=== PATIENT | female | born 1950 | race Caucasian/White ===

== ENCOUNTER 2016-12-01 13:20 | Emergency (ER) | payer MEDICARE, OTHER ==
[2016-12-01] MEDS ORDERED: HYDROmorphone 1 MG/ML 1 ML SYRINGE IM STA (14:11)
[2016-12-01] MEDS ORDERED: methylPREDNISolone SOD SUCCI 125 MG/2 ML VIAL IM STA (14:11)
--- NOTE | 2016-12-01 14:17 | ED ---
Back Pain HPI - General Chief Complaint: Back Pain/Injury Stated Complaint: Leg Pain Time Seen by Provider: 12/01/16 13:52 Source: patient, RN notes reviewed Limitations: no limitations - History of Present Illness Initial Comments: 66-year-old female presents to the emergency Department chief complaint of left leg and groin pain. Patient states she's been having this pain for the past month or so. Patient states that she's been to her back specialist stated injection however injection was about 5 days ago when she is not feeling any relief. Patient states that she called her doctor this week but they are on vacation so she is unable to see him. Patient states she's been using her 's tramadol with no improvement to her symptoms or she is here to get something to help her with her pain until she can see her doctor on Saturday. Patient states much like her normal pain. Patient denies any loss of bowel or bladder functions. They deny any other symptoms at this time. Patient denies any recent fever, chills, shortness of breath, chest pain, abdominal pain, nausea vomiting, numbness or tingling, dysuria or hematuria, constipation or diarrhea, headaches or visual changes, or any other current symptoms. - Related Data Home Medications Medication Instructions Recorded Confirmed Atorvastatin Calcium [Lipitor] 10 mg PO HS 12/10/14 12/14/14 Previous Rx's Medication Instructions Recorded Hydrocodone/Acetaminophen [[place] 1 each PO Q6HR PRN #20 tab 12/01/16 5-325] predniSONE 50 mg PO DAILY #5 tab 12/01/16 Allergies Allergy/AdvReac Type Severity Reaction Status Date / Time Sulfa (Sulfonamide Allergy hives Verified 12/01/16 13:51 Antibiotics) ibandronate sodium AdvReac dizziness, Verified 12/01/16 13:51 [From Bon[place]] confusion, muscle weakness Review of Systems ROS Statement: Those systems with pertinent positive or pertinent negative responses have been documented in the HPI. ROS Other: All systems not noted in ROS Statement are negative. Past Medical History Past Medical History: Hyperlipidemia Additional Past Medical History / Comment(s): + HEMOCCULT W/ ROUTINE PHYSICAL 11/24/14 History of Any Multi-Drug Resistant Organisms: None Reported Past Surgical History: Hysterectomy, Joint Replacement, Orthopedic Surgery Additional Past Surgical History / Comment(s): RT KNEE SCOPE. LT YESICA Past Anesthesia/Blood Transfusion Reactions: No Reported Reaction Past Psychological History: No Psychological Hx Reported Smoking Status: Never smoker Past Alcohol Use History: Occasional Past Drug Use History: None Reported General Exam Limitations: no limitations General appearance: alert, in no apparent distress Neck exam: Present: normal inspection. Absent: tenderness, meningismus, lymphadenopathy Respiratory exam: Present: normal lung sounds bilaterally. Absent: respiratory distress, wheezes, rales, rhonchi, stridor Cardiovascular Exam: Present: regular rate, normal rhythm, normal heart sounds. Absent: systolic murmur, diastolic murmur, rubs, gallop, clicks Extremities exam: Present: normal inspection, full ROM, normal capillary refill. Absent: tenderness, pedal edema, joint swelling, calf tenderness Back exam: Present: normal inspection, full ROM. Absent: tenderness, paraspinal tenderness, vertebral tenderness Neurological exam: Present: alert, oriented X3, CN II-XII intact. Absent: motor sensory deficit Psychiatric exam: Present: normal affect, normal mood Skin exam: Present: warm, dry, intact, normal color. Absent: rash Course Vital Signs 12/01/16 13:47 Temperature 99.4 F Pulse Rate 85 Respiratory 18 Rate Blood Pressure 138/68 O2 Sat by Pulse 97 Oximetry Medical Decision Making - Medical Decision Making 66-year-old female presents to the emergency department with a chief complaint of her chronic back pain flaring up. This time we did give the patient injections here. We gave her prescription for pain medication other steroid Dosepak for home. We discussed follow-up with her back specialist we discussed return parameters. We discussed all patient's questions. She stated that she understood and is tender and plan. This time she was discharged home. Disposition Clinical Impression: Degenerative disc disease Disposition: HOME SELF-CARE Condition: Stable Instructions: Degenerative Disc Disease (ED) Additional Instructions: Please use medication as discussed. Please follow up with family doctor if symptoms have not improved over the next two days. Please return to the emergency room if your symptoms increase or worsen or for any other concerns. Prescriptions: Hydrocodone/Acetaminophen [[place] 5-325] 1 each PO Q6HR PRN #20 tab PRN Reason: Pain predniSONE 50 mg PO DAILY #5 tab Referrals: Nicolasa Tovar MD [Primary Care Provider] - 1-2 days Time of Disposition: 14:17
[2016-12-01 14:44] VITALS: BP 136/70; PULSE 80; RESP 20; TEMP 98.2
== END 2016-12-01 14:43 | disposition home or self-care (01) ==
LOC: EC 13:20
DX: M51.9 Unspecified thoracic, thoracolumbar and lumbosacral intervertebral disc disorder (principal); E78.5 Hyperlipidemia, unspecified; Z79.899 Other long term (current) drug therapy; Z88.2 Allergy status to sulfonamides; Z88.8 Allergy status to other drugs, medicaments and biological substances
CPT/HCPCS: 99283; 96372 ×2; J2930; J1170

== ENCOUNTER 2016-12-25 17:12 | Emergency (ER) | payer MEDICARE, OTHER ==
[~2016-12-25 17:12] MED LIST: MAGNESIUM CITRATE 296 ML BOTTLE ONE
[2016-12-25] MEDS ORDERED: SODIUM CHLORIDE 0.9% 1,000 ML IV STA ×2 (17:48)
[2016-12-25] MEDS ORDERED: MAGNESIUM CITRATE 296 ML BOTTLE PO ONE (17:50)
[2016-12-25] MEDS ORDERED: DOCUSATE 100 MG CAP PO STA (17:51)
--- NOTE | 2016-12-25 18:05 | ED ---
General Adult HPI - General Chief complaint: Abdominal Pain Stated complaint: Abd Pain Time Seen by Provider: 12/25/16 17:36 Source: patient, RN notes reviewed Mode of arrival: wheelchair Limitations: no limitations - History of Present Illness Initial comments: Patient 66-year-old female who presents emergency room today with chief complaint of abdominal pain over the last few days. Does admit that she went to the family doctor who did an x-ray of the abdomen and was told that she is constipated. She states she's been taking laxative last today she's had bowel movements but have not been very large. She states it has had relief after bowel movements of similar pain. She describes abdominal pain as crampy in nature. She states it comes and goes. States currently comfortable this time. States that she has had decreased flatulence. States she's been on medications of tramadol and also [place] due to back pain recently. Patient also admits that her doctor gave her antibiotic of Augmentin to cover for possible diverticulitis. Denies any history of diverticulitis. Patient denies any other complaints or symptoms at this time. - Related Data Home Medications Medication Instructions Recorded Confirmed Atorvastatin Calcium [Lipitor] 10 mg PO HS 12/10/14 12/25/16 Acetaminophen Tab [Tylenol Tab] 1,000 mg PO Q6HR PRN 12/25/16 12/25/16 Amoxic-Pot Clav 875-125Mg 1 tab PO Q12HR 12/25/16 12/25/16 [Augmentin 875-125] Naproxen Sodium [Aleve] 220 mg PO BID PRN 12/25/16 12/25/16 Zolpidem [Ambien] 10 mg PO HS PRN 12/25/16 12/25/16 Allergies Allergy/AdvReac Type Severity Reaction Status Date / Time Sulfa (Sulfonamide Allergy hives Verified 12/25/16 18:18 Antibiotics) ibandronate sodium AdvReac dizziness, Verified 12/25/16 18:18 [From [place]] confusion, muscle weakness Review of Systems ROS Statement: Those systems with pertinent positive or pertinent negative responses have been documented in the HPI. ROS Other: All systems not noted in ROS Statement are negative. Past Medical History Past Medical History: Hyperlipidemia Additional Past Medical History / Comment(s): + HEMOCCULT W/ ROUTINE PHYSICAL 11/24/14 History of Any Multi-Drug Resistant Organisms: None Reported Past Surgical History: Hysterectomy, Joint Replacement, Orthopedic Surgery Additional Past Surgical History / Comment(s): RT KNEE SCOPE. LT YESICA Past Anesthesia/Blood Transfusion Reactions: No Reported Reaction Past Psychological History: No Psychological Hx Reported Smoking Status: Never smoker Past Alcohol Use History: Occasional Past Drug Use History: None Reported General Exam - General Exam Comments Initial Comments: General: The patient is awake and alert, in no distress, and does not appear acutely ill. Eye: Pupils are equal, round and reactive to light, extra-ocular movements are intact. No nystagmus. There is normal conjunctiva bilaterally. No signs of icterus. Ears, nose, mouth and throat: There are moist mucous membranes and no oral lesions. Neck: The neck is supple, there is no tenderness or JVD. Cardiovascular: There is a regular rate and rhythm. No murmur, rub or gallop is appreciated. Respiratory: Lungs are clear to auscultation, respirations are non-labored, breath sounds are equal. No wheezes, stridor, rales, or rhonchi. Gastrointestinal: Soft, non-distended, non-tender abdomen without masses or organomegaly noted. There is no rebound or guarding present. No CVA tenderness. Bowel sounds are unremarkable. Musculoskeletal: Normal ROM, no tenderness. Strength 5/5. Sensation intact. Pulses equal bilaterally 2+. Neurological: A&O x 3. CN II-XII intact, There are no obvious motor or sensory deficits. Coordination appears grossly intact. Speech is normal. Skin: Skin is warm and dry and no rashes or lesions are noted. Psychiatric: Cooperative, appropriate mood & affect, normal judgment. Limitations: no limitations Course Vital Signs 12/25/16 17:32 Temperature 99.1 F Pulse Rate 84 Respiratory 20 Rate Blood Pressure 135/71 O2 Sat by Pulse 97 Oximetry Medical Decision Making - Medical Decision Making Patient reexamined at this time shows no signs of distress resting comfortably in the stretcher. Patient's labs been reviewed. No elevated white count. No fever here in the emergency room. CT of the abdomen and pelvis does show evidence of diverticulitis. Patient started Augmentin yesterday. Case was discussed in detail with Dr. Platt. I discussed with patient about admission versus continuing outpatient antibiotics at this time. States she does not want to be admitted. Will be given dose of Unasyn here in emergency room. Will be continued on Augmentin at home. Advised follow-up the family doctor tomorrow. Advised return if there is any fever or increase worsen symptoms. - Lab Data Result diagrams: 12/25/16 17:55 12/25/16 17:55 Lab Results 12/25/16 12/25/16 12/25/16 Range/Units 17:55 17:55 17:55 WBC 9.1 (3.8-10.6) k/uL RBC 4.36 (3.80-5.40) m/uL Hgb 13.3 (11.4-16.0) gm/dL Hct 40.1 (34.0-46.0) % MCV 92.1 (80.0-100.0) fL MCH 30.5 (25.0-35.0) pg MCHC 33.1 (31.0-37.0) g/dL RDW 13.0 (11.5-15.5) % Plt Count 291 (150-450) k/uL Neutrophils % 80 % Lymphocytes % 11 % Monocytes % 4 % Eosinophils % 3 % Basophils % 0 % Neutrophils # 7.2 (1.3-7.7) k/uL Lymphocytes # 1.0 (1.0-4.8) k/uL Monocytes # 0.4 (0-1.0) k/uL Eosinophils # 0.3 (0-0.7) k/uL Basophils # 0.0 (0-0.2) k/uL PT 10.6 (9.0-12.0) sec INR 1.0 (<1.1) APTT 25.1 (22.0-30.0) sec Sodium 143 (137-145) mmol/L Potassium 4.4 (3.5-5.1) mmol/L Chloride 105 (98-107) mmol/L Carbon Dioxide 27 (22-30) mmol/L Anion Gap 11 mmol/L BUN 16 (7-17) mg/dL Creatinine 0.83 (0.52-1.04) mg/dL Est GFR (MDRD) Af Amer >60 (>60 ml/min/1.73 sqM) Est GFR (MDRD) Non-Af >60 (>60 ml/min/1.73 sqM) Glucose 100 H (74-99) mg/dL Calcium 10.0 (8.4-10.2) mg/dL Total Bilirubin 0.8 (0.2-1.3) mg/dL AST 15 (14-36) U/L ALT 27 (9-52) U/L Alkaline Phosphatase 61 (38-126) U/L Total Protein 7.5 (6.3-8.2) g/dL Albumin 4.3 (3.5-5.0) g/dL Lipase 51 (23-300) U/L Urine Color Urine Appearance (Clear) Urine pH (5.0-8.0) Ur Specific [place] (1.001-1.035) Urine Protein (Negative) Urine Glucose (UA) (Negative) Urine Ketones (Negative) Urine Blood (Negative) Urine Nitrite (Negative) Urine Bilirubin (Negative) Urine Urobilinogen (<2.0) mg/dL Ur Leukocyte Esterase (Negative) 12/25/16 Range/Units 18:54 WBC (3.8-10.6) k/uL RBC (3.80-5.40) m/uL Hgb (11.4-16.0) gm/dL Hct (34.0-46.0) % MCV (80.0-100.0) fL MCH (25.0-35.0) pg MCHC (31.0-37.0) g/dL RDW (11.5-15.5) % Plt Count (150-450) k/uL Neutrophils % % Lymphocytes % % Monocytes % % Eosinophils % % Basophils % % Neutrophils # (1.3-7.7) k/uL Lymphocytes # (1.0-4.8) k/uL Monocytes # (0-1.0) k/uL Eosinophils # (0-0.7) k/uL Basophils # (0-0.2) k/uL PT (9.0-12.0) sec INR (<1.1) APTT (22.0-30.0) sec Sodium (137-145) mmol/L Potassium (3.5-5.1) mmol/L Chloride (98-107) mmol/L Carbon Dioxide (22-30) mmol/L Anion Gap mmol/L BUN (7-17) mg/dL Creatinine (0.52-1.04) mg/dL Est GFR (MDRD) Af Amer (>60 ml/min/1.73 sqM) Est GFR (MDRD) Non-Af (>60 ml/min/1.73 sqM) Glucose (74-99) mg/dL Calcium (8.4-10.2) mg/dL Total Bilirubin (0.2-1.3) mg/dL AST (14-36) U/L ALT (9-52) U/L Alkaline Phosphatase (38-126) U/L Total Protein (6.3-8.2) g/dL Albumin (3.5-5.0) g/dL Lipase (23-300) U/L Urine Color Yellow Urine Appearance Clear (Clear) Urine pH 5.0 (5.0-8.0) Ur Specific [place] 1.010 (1.001-1.035) Urine Protein Negative (Negative) Urine Glucose (UA) Negative (Negative) Urine Ketones 1+ H (Negative) Urine Blood Negative (Negative) Urine Nitrite Negative (Negative) Urine Bilirubin Negative (Negative) Urine Urobilinogen <2.0 (<2.0) mg/dL Ur Leukocyte Esterase Negative (Negative) Disposition Clinical Impression: Diverticulitis Disposition: HOME SELF-CARE Condition: Good Instructions: Diverticulitis (ED) Additional Instructions: Please continue previously prescribed antibiotics. Please follow-up the family doctor tomorrow. Please return to emergency room if there is any fever or increase or worsening of symptoms or any other concerns. Time of Disposition: 20:37
[2016-12-25 18:12] LABS: Basophils % (A) 0 %; CHCM 32.7; Eosinophils # (A) 0.3 k/uL (0-0.7); Eosinophils % (A) 3 %; HCT 40.1 % (34.0-46.0); HDW 2.25; HGB 13.3 gm/dL (11.4-16.0); Luc # (Auto) 0.17; Luc % (Auto) 2; Lymphocytes % (A) 11 %; MCH 30.5 pg (25.0-35.0); MCHC 33.1 g/dL (31.0-37.0); MCV 92.1 fL (80.0-100.0); Mean Platelet Volume 6.9; Monocytes # (A) 0.4 k/uL (0-1.0); Monocytes % (A) 4 %; Neutrophils # (A) 7.2 k/uL (1.3-7.7); Neutrophils % (A) 80 %; RBC 4.36 m/uL (3.80-5.40); WBC 9.1 k/uL (3.8-10.6); WBC (Perox) 9.32
--- NOTE | 2016-12-25 18:17 | XR ---
EXAMINATION TYPE: XR KUB DATE OF EXAM: 12/25/2016 6:13 PM CLINICAL HISTORY: Lower abdominal pain for 2 days with constipation. TECHNIQUE: 2 upright KUB images of the abdomen are obtained. COMPARISON: None. FINDINGS: Scattered gas is seen in non-distended small bowel loops. Gas and fecal material is seen in non-distended colon. There is no visceromegaly, pneumoperitoneum, or abnormal calcification appr eciated. The lung bases are clear. Metallic hardware left hip level is partially imaged. IMPRESSION: Overall nonobstructive bowel gas pattern.
[2016-12-25 18:18] LABS: Partial Thromboplastin Time 25.1 sec (22.0-30.0); Prothrombin Time 10.6 sec (9.0-12.0)
[2016-12-25 18:25] LABS: ALT 27 U/L (9-52); AST 15 U/L (14-36); Alkaline Phosphatase 61 U/L (38-126); Anion Gap 11 mmol/L; Blood Urea Nitrogen 16 mg/dL (7-17); Carbon Dioxide 27 mmol/L (22-30); Chloride 105 mmol/L (98-107); Glucose 100 mg/dL (74-99); Non-African American GFR(MDRD) >60 (>60 ml/min/1.73 sqM); Potassium 4.4 mmol/L (3.5-5.1); Sodium 143 mmol/L (137-145); Total Bilirubin 0.8 mg/dL (0.2-1.3); Total Protein 7.5 g/dL (6.3-8.2)
[2016-12-25] MEDS ORDERED: RX INFO: IV CONTRAST WAS GIVEN 1 EACH MISC MISCELLANE PRN (18:59)
[2016-12-25 19:20] LABS: Appearance,Urine Clear (Clear); Bilirubin,Urine Negative (Negative); Glucose,Urine (UA) Negative (Negative); Ketones,Urine 1+ (Negative); Leukocyte Esterase,Urine Negative (Negative); Nitrite,Urine Negative (Negative); Protein,Urine Negative (Negative); UA Billing (MACRO vs. MICRO) CHEM; Urobilinogen,Urine <2.0 mg/dL (<2.0)
--- NOTE | 2016-12-25 20:05 | CT ---
EXAMINATION TYPE: CT abdomen pelvis w con DATE OF EXAM: 12/25/2016 7:39 PM HISTORY: Patient complains of LLQ pain. CT DLP: 1452mGycm Automated Exposure Control for Dose Reduction was Utilized. CONTRAST: CT scan of the abdomen and pelvis is performed without oral but with IV Contrast, patient injected wi th 100 mL of Omnipaque 300. COMPARISON: None. FINDINGS: LUNG BASES: No significant abnormality is appreciated. LIVER/GB: No significant abnormality is appreciated. PANCREAS: No significant abnormality is seen. SPLEEN: No significant abnormality is seen. ADRENALS: No significant abnormality is seen. KIDNEYS: Several simple appearing cysts are scattered throughout both kidneys. BOWEL: Evaluation bowel is suboptimal secondary to lack of enteric contrast. There is fluid seen in s lightly prominent stomach with air-fluid level. There is no suspicious distention of the duodenal swe ep. Some fluid is seen in nondistended small bowel loops in the lower abdomen. Fluid is noted in dist ended cecum could reflect colitis or diarrhea. There is mild wall thickening of the left colon and sigmoid colon. Some diverticula are present. Ther e is mild fat stranding in the proximal to mid sigmoid colon in the left pelvis. Findings are consist ent with acute diverticulitis at this level. No well-formed fluid collection or abscess is seen. No p neumoperitoneum is identified. UTERUS/ADNEXA: Uterus is surgically absent or markedly atrophic in appearance. Scattered pelvic phleb oliths are seen. LYMPH NODES: No greater than 1cm abdominal or pelvic lymph nodes are appreciated. OSSEOUS STRUCTURES: Metallic hardware from left hip arthroplasty causes streak artifact making evalua tion of pelvic structures suboptimal. There is mild to moderate joint space loss with spurring and pitt bchondral cystic change in the right hip. There is disc space narrowing at lumbosacral junction. Spin e is straightened on sagittal images. There is spurring and disc space narrowing in the visualized th oracic spine. OTHER: No significant additional abnormality is seen. IMPRESSION: CT findings are consistent with acute diverticulitis centered in the proximal sigmoid col on in the left upper to mid pelvis. No pneumoperitoneum or well-formed fluid collection/abscess is se en.
[2016-12-25] MEDS ORDERED: AMPICILLIN-SULBACTAM 3 GM in SODIUM CHLORIDE 0.9% 100 ML IVPB STA (20:30)
[2016-12-25] MEDS ORDERED: HYDROmorphone 1 MG/ML 1 ML SYRINGE IVP STA (20:50)
[2016-12-25] MEDS ORDERED: ONDANSETRON 4 MG/2 ML VIAL IVP STA (20:51)
[2016-12-25 22:10] VITALS: BP 125/74; PULSE 69; RESP 18; TEMP 97.5
== END 2016-12-25 22:30 | disposition home or self-care (01) ==
LOC: EC 17:12
DX: K57.92 Diverticulitis of intestine, part unspecified, without perforation or abscess without bleeding (principal); E78.5 Hyperlipidemia, unspecified; Z79.899 Other long term (current) drug therapy; Z88.2 Allergy status to sulfonamides; Z88.8 Allergy status to other drugs, medicaments and biological substances; Z90.710 Acquired absence of both cervix and uterus
CPT/HCPCS: 36415; 80053; 83690; 85025; 85610; 85730; 81003; 74000; 74177; 99284; 96365; 96375 ×2; 96361 ×3; J2405; J1170; Q9967; J0295

== ENCOUNTER 2017-02-13 20:08 | Emergency (ER) | payer MEDICARE, OTHER ==
[2017-02-13] MEDS: ACETAMINOPHEN TAB 500 MG TAB PO STA (20:24)
[2017-02-13] MEDS: SODIUM CHLORIDE 0.9% 1,000 ML IV STA (20:29)
[2017-02-13 20:37] LABS: Basophils % (A) 0 %; CH 30.2; CHCM 32.7; Eosinophils # (A) 0.1 k/uL (0-0.7); Eosinophils % (A) 1 %; HCT 37.2 % (34.0-46.0); HDW 2.29; Luc # (Auto) 0.16; Luc % (Auto) 1; Lymphocytes # (A) 0.7 k/uL (1.0-4.8); Lymphocytes % (A) 6 %; MCH 29.9 pg (25.0-35.0); MCHC 32.2 g/dL (31.0-37.0); MCV 92.7 fL (80.0-100.0); Mean Platelet Volume 7.1; Monocytes # (A) 0.5 k/uL (0-1.0); Monocytes % (A) 4 %; Neutrophils # (A) 11.1 k/uL (1.3-7.7); Neutrophils % (A) 88 %; RBC 4.02 m/uL (3.80-5.40); RDW 14.1 % (11.5-15.5); WBC 12.6 k/uL (3.8-10.6); WBC (Perox) 13.37
[2017-02-13 20:47] LABS: ALT 32 U/L (9-52); AST 14 U/L (14-36); Alkaline Phosphatase 75 U/L (38-126); Anion Gap 12 mmol/L; Blood Urea Nitrogen 15 mg/dL (7-17); Calcium 9.8 mg/dL (8.4-10.2); Carbon Dioxide 24 mmol/L (22-30); Chloride 104 mmol/L (98-107); Glucose 135 mg/dL (74-99); Non-African American GFR(MDRD) >60 (>60 ml/min/1.73 sqM); Potassium 3.8 mmol/L (3.5-5.1); Sodium 140 mmol/L (137-145); Total Bilirubin 0.5 mg/dL (0.2-1.3)
--- NOTE | 2017-02-13 21:16 | US ---
EXAMINATION TYPE: US gallbladder DATE OF EXAM: 02/13/2017 COMPARISON: Prior US and CT in PACS CLINICAL HISTORY: RUQ Pain, fever, nausea. Patient had a bladder infection x2 weeks ago. Difficult ex am due to large amount of overlying bowel gas and patient being in pain during exam EXAM MEASUREMENTS: Liver Length: 13.9 cm Gallbladder Wall: 0.2 cm CBD: 0.3 cm Right Kidney: 10.0 x 4.6 x 4.6 cm Pancreas: Obscured by bowel gas, visualized portion show no mass Liver: Heterogeneous Gallbladder: No stones or sludge seen Evidence for sonographic Lara's sign: Patient complained of pain during entire exam CBD: wnl as visualized, distal portion obscured by bowel gas Right Kidney: Cystic area visualized upper pole measuring 1.3 x 1.6 x 1.7 cm IMPRESSION: 1.5 cm right renal cortical cyst. No gallstones or dilated ducts. There is a distended ga llbladder that measures 8.2 cm in length.
--- NOTE | 2017-02-13 21:31 | XR ---
EXAMINATION TYPE: XR KUB DATE OF EXAM: 02/13/2017 COMPARISON: NONE HISTORY: Fever TECHNIQUE: 2 views FINDINGS: There is no sign of intestinal obstruction or pneumoperitoneum. There is retained fecal mat erial in the colon. There is left hip prosthesis. There are no pathologic calcifications over the kid neys. Lung bases are clear. IMPRESSION: Nonacute abdomen. Constipation.
[2017-02-13 21:32] VITALS: RESP 16
[2017-02-13 21:33] LABS: Appearance,Urine Cloudy (Clear); Bacteria,Urine Rare /hpf; Bilirubin,Urine Negative (Negative); Glucose,Urine (UA) Negative (Negative); Ketones,Urine Negative (Negative); Leukocyte Esterase,Urine Large (Negative); Mucus,Urine Rare /hpf; Nitrite,Urine Positive (Negative); PH, Urine 5.5 (5.0-8.0); Particle Count 28804; Protein,Urine Negative (Negative); RBC,Urine 4 /hpf (0-5); Specific Gravity,Urine 1.005 (1.001-1.035); Squamous Epithelial Cell,Urine <1 /hpf (0-4); UA Billing (MACRO vs. MICRO) MICRO; Urobilinogen,Urine <2.0 mg/dL (<2.0); WBC,Urine 133 /hpf (0-5)
[2017-02-13] MEDS: LEVOFLOXACIN 750MG-D5W PMX 750 MG in DEXTROSE/WATER 1 150ML.BAG IVPB STA (22:14)
--- NOTE | 2017-02-13 22:18 | ED ---
Fever HPI - General Chief Complaint: Fever Stated Complaint: Fever/102 Time Seen by Provider: 02/13/17 20:23 Source: patient, RN notes reviewed, old records reviewed Mode of arrival: ambulatory Limitations: no limitations - History of Present Illness Initial Comments: 66 year old female with CC of dysuria for the past few days and polyuria, as well as today she has a fever. Patient reports right flank and ruight upper quadrant pain. She reports she has her galbladder, and had an US a year ago. No recent tylenol or motrin. PAtient reports that she was treated for uti not long ago, also had CT scan of abdomen and pelvis recently which shows diverticulosis. Patient reprots that she has no vomiting, She reports she had diarrhea 2 days ago. - Related Data Home Medications Medication Instructions Recorded Confirmed Atorvastatin Calcium [Lipitor] 10 mg PO HS 12/10/14 02/13/17 Acetaminophen Tab [Tylenol Tab] 1,000 mg PO Q6HR PRN 12/25/16 02/13/17 Naproxen Sodium [Aleve] 220 mg PO BID PRN 12/25/16 02/13/17 Zolpidem [Ambien] 10 mg PO HS PRN 12/25/16 02/13/17 Ibuprofen [Motrin] 400 mg PO Q6HR PRN 02/13/17 02/13/17 traMADol HCL [Ultram] 50 mg PO DAILY PRN 02/13/17 02/13/17 Previous Rx's Medication Instructions Recorded Ciprofloxacin HCl [Cipro] 500 mg PO Q12HR #14 tablet 02/13/17 Allergies Allergy/AdvReac Type Severity Reaction Status Date / Time Sulfa (Sulfonamide Allergy hives Verified 02/13/17 20:35 Antibiotics) ibandronate sodium AdvReac dizziness, Verified 02/13/17 20:35 [From [facility]] confusion, muscle weakness Review of Systems ROS Statement: Those systems with pertinent positive or pertinent negative responses have been documented in the HPI. ROS Other: All systems not noted in ROS Statement are negative. Past Medical History Past Medical History: Hyperlipidemia Additional Past Medical History / Comment(s): + HEMOCCULT W/ ROUTINE PHYSICAL 11/24/14 History of Any Multi-Drug Resistant Organisms: None Reported Past Surgical History: Hysterectomy, Joint Replacement, Orthopedic Surgery Additional Past Surgical History / Comment(s): RT KNEE SCOPE. LT YESICA Past Anesthesia/Blood Transfusion Reactions: No Reported Reaction Past Psychological History: Anxiety Smoking Status: Never smoker Past Alcohol Use History: Occasional Past Drug Use History: None Reported General Exam - General Exam Comments Initial Comments: Pleasant 66 year old female. Limitations: no limitations General appearance: alert, in no apparent distress Head exam: Present: atraumatic, normocephalic, normal inspection Eye exam: Present: normal appearance, PERRL, EOMI. Absent: scleral icterus, conjunctival injection, periorbital swelling ENT exam: Present: normal exam, mucous membranes moist Neck exam: Present: normal inspection. Absent: tenderness, meningismus, lymphadenopathy Respiratory exam: Present: normal lung sounds bilaterally. Absent: respiratory distress, wheezes, rales, rhonchi, stridor Cardiovascular Exam: Present: regular rate, normal rhythm, normal heart sounds. Absent: systolic murmur, diastolic murmur, rubs, gallop, clicks GI/Abdominal exam: Present: soft, tenderness (RUQ ), normal bowel sounds. Absent: distended, guarding, rebound, rigid Extremities exam: Present: normal inspection, full ROM, normal capillary refill. Absent: tenderness, pedal edema, joint swelling, calf tenderness Back exam: Present: normal inspection, CVA tenderness (R) Neurological exam: Present: alert, oriented X3, CN II-XII intact Psychiatric exam: Present: normal affect, normal mood Skin exam: Present: warm, dry, intact, normal color. Absent: rash Course Vital Signs 02/13/17 02/13/17 02/13/17 20:12 21:31 23:13 Temperature 101.4 F H 100.3 F H 98.2 F Pulse Rate 99 83 70 Respiratory 18 16 16 Rate Blood Pressure 119/64 109/65 107/58 O2 Sat by Pulse 96 96 96 Oximetry Medical Decision Making - Medical Decision Making 66 year old female with CC of dysuria for the past few days and polyuria, as well as today she has a fever. Patient reports right flank and ruight upper quadrant pain. She reports she has her galbladder, and had an US a year ago. No recent tylenol or motrin. PAtient reports that she was treated for uti not long ago, also had CT scan of abdomen and pelvis recently which shows diverticulosis. Patient given tylenol and started with fluids. Urinalysis is positive for uti, blood work is withing normal limits. Patient was started on levaquin in [facility] and discharged home with ciproflocacin. GB US shows distended galbladder, no dsignificant stone or thickening. Return parameters and treatment plan discussed. - Lab Data Result diagrams: 02/13/17 20:22 02/13/17 20:22 Lab Results 02/13/17 02/13/17 02/13/17 Range/Units 20:22 20:22 20:22 WBC 12.6 H (3.8-10.6) k/uL RBC 4.02 (3.80-5.40) m/uL Hgb 12.0 (11.4-16.0) gm/dL Hct 37.2 (34.0-46.0) % MCV 92.7 (80.0-100.0) fL MCH 29.9 (25.0-35.0) pg MCHC 32.2 (31.0-37.0) g/dL RDW 14.1 (11.5-15.5) % Plt Count 277 (150-450) k/uL Neutrophils % 88 % Lymphocytes % 6 % Monocytes % 4 % Eosinophils % 1 % Basophils % 0 % Neutrophils # 11.1 H (1.3-7.7) k/uL Lymphocytes # 0.7 L (1.0-4.8) k/uL Monocytes # 0.5 (0-1.0) k/uL Eosinophils # 0.1 (0-0.7) k/uL Basophils # 0.0 (0-0.2) k/uL Sodium 140 (137-145) mmol/L Potassium 3.8 (3.5-5.1) mmol/L Chloride 104 (98-107) mmol/L Carbon Dioxide 24 (22-30) mmol/L Anion Gap 12 mmol/L BUN 15 (7-17) mg/dL Creatinine 0.80 (0.52-1.04) mg/dL Est GFR (MDRD) Af Amer >60 (>60 ml/min/1.73 sqM) Est GFR (MDRD) Non-Af >60 (>60 ml/min/1.73 sqM) Glucose 135 H (74-99) mg/dL Plasma Lactic Acid Garry 1.0 (0.7-2.0) mmol/L Calcium 9.8 (8.4-10.2) mg/dL Total Bilirubin 0.5 (0.2-1.3) mg/dL AST 14 (14-36) U/L ALT 32 (9-52) U/L Alkaline Phosphatase 75 (38-126) U/L Total Protein 7.0 (6.3-8.2) g/dL Albumin 4.3 (3.5-5.0) g/dL Urine Color Urine Appearance (Clear) Urine pH (5.0-8.0) Ur Specific [place] (1.001-1.035) Urine Protein (Negative) Urine Glucose (UA) (Negative) Urine Ketones (Negative) Urine Blood (Negative) Urine Nitrite (Negative) Urine Bilirubin (Negative) Urine Urobilinogen (<2.0) mg/dL Ur Leukocyte Esterase (Negative) Urine RBC (0-5) /hpf Urine WBC (0-5) /hpf Urine WBC Clumps (None) /hpf Ur Squamous Epith Cells (0-4) /hpf Urine Bacteria (None) /hpf Urine Mucus (None) /hpf 02/13/17 Range/Units 21:12 WBC (3.8-10.6) k/uL RBC (3.80-5.40) m/uL Hgb (11.4-16.0) gm/dL Hct (34.0-46.0) % MCV (80.0-100.0) fL MCH (25.0-35.0) pg MCHC (31.0-37.0) g/dL RDW (11.5-15.5) % Plt Count (150-450) k/uL Neutrophils % % Lymphocytes % % Monocytes % % Eosinophils % % Basophils % % Neutrophils # (1.3-7.7) k/uL Lymphocytes # (1.0-4.8) k/uL Monocytes # (0-1.0) k/uL Eosinophils # (0-0.7) k/uL Basophils # (0-0.2) k/uL Sodium (137-145) mmol/L Potassium (3.5-5.1) mmol/L Chloride (98-107) mmol/L Carbon Dioxide (22-30) mmol/L Anion Gap mmol/L BUN (7-17) mg/dL Creatinine (0.52-1.04) mg/dL Est GFR (MDRD) Af Amer (>60 ml/min/1.73 sqM) Est GFR (MDRD) Non-Af (>60 ml/min/1.73 sqM) Glucose (74-99) mg/dL Plasma Lactic Acid Garry (0.7-2.0) mmol/L Calcium (8.4-10.2) mg/dL Total Bilirubin (0.2-1.3) mg/dL AST (14-36) U/L ALT (9-52) U/L Alkaline Phosphatase (38-126) U/L Total Protein (6.3-8.2) g/dL Albumin (3.5-5.0) g/dL Urine Color Light Yellow Urine Appearance Cloudy H (Clear) Urine pH 5.5 (5.0-8.0) Ur Specific [place] 1.005 (1.001-1.035) Urine Protein Negative (Negative) Urine Glucose (UA) Negative (Negative) Urine Ketones Negative (Negative) Urine Blood Trace H (Negative) Urine Nitrite Positive H (Negative) Urine Bilirubin Negative (Negative) Urine Urobilinogen <2.0 (<2.0) mg/dL Ur Leukocyte Esterase Large H (Negative) Urine RBC 4 (0-5) /hpf Urine WBC 133 H (0-5) /hpf Urine WBC Clumps Few H (None) /hpf Ur Squamous Epith Cells <1 (0-4) /hpf Urine Bacteria Rare H (None) /hpf Urine Mucus Rare H (None) /hpf - Radiology Data Radiology results: report reviewed Disposition Clinical Impression: UTI (urinary tract infection) Disposition: HOME SELF-CARE Condition: Good Instructions: Fever in Adults (ED) Additional Instructions: Patient advised to take stool softeners for constipation. Completely anabiotic prescription. Follow-up with her primary care provider. Return the emergency department if any alarming signs or symptoms occur. Prescriptions: Ciprofloxacin HCl [Cipro] 500 mg PO Q12HR #14 tablet Referrals: Nicolasa Tovar MD [Primary Care Provider] - 1-2 days Time of Disposition: 22:59
[2017-02-13 23:14] VITALS: BP 107/58; PULSE 70; TEMP 98.2
== END 2017-02-14 00:05 | disposition home or self-care (01) ==
LOC: EC 20:08
DX: N39.0 Urinary tract infection, site not specified (principal); K82.8 Other specified diseases of gallbladder; R10.11 Right upper quadrant pain; E78.5 Hyperlipidemia, unspecified; Z79.899 Other long term (current) drug therapy; Z88.2 Allergy status to sulfonamides; Z88.8 Allergy status to other drugs, medicaments and biological substances
CPT/HCPCS: 36415; 80053; 83605; 85025; 81001; 87040; 87086; 74000; 76705; 99284; 96365; 96366; 96361; J1956; 87077; 87186

== ENCOUNTER → 2017-04-19 | Outpatient (CLI) | payer MEDICARE, OTHER ==
--- NOTE | 2017-04-19 10:01 | XR ---
EXAMINATION TYPE: XR chest 2V DATE OF EXAM: 04/19/2017 COMPARISON: NONE HISTORY: Cough for 2 weeks TECHNIQUE: Frontal and lateral views of the chest are obtained. FINDINGS: There is no focal air space opacity, pleural effusion, or pneumothorax seen. The cardiac silhouette size is within normal limits. The osseous structures are intact. There is tortuosity of the thoracic aorta and minimal degenerative changes of the thoracic spine. IMPRESSION: No acute cardiopulmonary process.
== END ==
LOC: RADXRMAIN 09:44
PROVIDERS: ATTEND Allergy & Immunology
DX: R05 Cough (principal)
CPT/HCPCS: 71020